=== PATIENT | male | born 1985 | race Caucasian/White ===

== ENCOUNTER 2016-11-21 12:47 | Emergency (ER) | payer OTHER ==
[~2016-11-21 12:47] MED LIST: CIPRO PO; FLEXERIL PO; ILOTYCIN1 G1 OP; KEFLEX500 M1 PO; KEFLEX500 M2 PO; KEFLEX500 MG PO; NO MEDICATIONS; VICODIN 5/500 T1 TAB PO; VOLTAREN75 MG PO
== END 2016-11-21 13:15 | disposition home or self-care (01) ==
LOC: SED 12:47
DX: B86 Scabies (principal)
CPT/HCPCS: 99282